=== PATIENT | female | born 1995 | race Hispanic/Latino ===

== ENCOUNTER 2020-11-14 14:10 | Inpatient (IN) | payer OTHER ==
[~2020-11-14] VITALS: Ht 162.6 cm; Wt 71.2 kg
[2020-11-14 15:25] LABS: BASOPHILS % (AUTO) 0.5 % (0.0-5.0); EOSINOPHILS % (AUTO) 0.2 % (0.0-8.0); HEMATOCRIT 26.3 % (36-48); LYMPHOCYTES % (AUTO) 9.4 % (21.0-51.0); MEAN CORPUSCULAR HEMOGLOBIN 22.7 pg (27.0-33.0); MEAN CORPUSCULAR HGB CONC 30.8 g/dL (32.0-36.0); MEAN CORPUSCULAR VOLUME 73.7 fL (79-99); MONOCYTES % (AUTO) 3.6 % (3.0-13.0); PLATELET COUNT (AUTO) 275 K/uL (130-400); RED BLOOD CELL COUNT(AUTO) 3.57 MIL/uL (4.00-5.50); RED CELL DISTRIBUTION WIDTH 16.1 % (11.0-15.5); WHITE BLOOD COUNT (AUTO) 13.3 K/uL (4.8-10.8)
[2020-11-14 16:00] LABS: CREATININE 0.5 mg/dL (0.5-1.5); POTASSIUM 3.9 mmol/L (3.5-5.1)
[2020-11-14 16:05] LABS: ALBUMIN 3.8 g/dL (3.5-5.0); BILIRUBIN,TOTAL 0.2 mg/dL (0.2-1.0); TOTAL PROTEIN, SERUM 7.4 g/dL (6.0-8.3)
[2020-11-14 18:37] LABS: BASOPHILS % (AUTO) 0.3 % (0.0-5.0); EOSINOPHILS % (AUTO) 0.1 % (0.0-8.0); HEMATOCRIT 23.1 % (36-48); LYMPHOCYTES % (AUTO) 11.6 % (21.0-51.0); MEAN CORPUSCULAR HGB CONC 31.2 g/dL (32.0-36.0); MEAN CORPUSCULAR VOLUME 73.8 fL (79-99); MONOCYTES % (AUTO) 3.4 % (3.0-13.0); NEUTROPHILS % (AUTO) 84.3 % (40.0-77.0); PLATELET COUNT (AUTO) 242 K/uL (130-400); RED BLOOD CELL COUNT(AUTO) 3.13 MIL/uL (4.00-5.50); RED CELL DISTRIBUTION WIDTH 16.2 % (11.0-15.5); WHITE BLOOD COUNT (AUTO) 10.9 K/uL (4.8-10.8)
[2020-11-14 21:28] VITALS: BP 126/68
[2020-11-14 22:10] VITALS: BP 114/73
[2020-11-14 22:17] VITALS: BP 115/72
[2020-11-14 22:27] VITALS: BP 112/82
[2020-11-14] MEDS ORDERED: [UNRECOGNIZED DRUG - OTHER] PO (22:43)
[2020-11-14] MEDS ORDERED: salbutamol IH (22:45)
[2020-11-14 23:30] VITALS: BP 106/61
[2020-11-15 00:46] VITALS: BP 112/65
[2020-11-15] MEDS: LACTATED RINGERS 1000ML 1,000 ML IV SCH ×2 (00:50→10:15)
[2020-11-15 04:26] VITALS: BP 112/61
[2020-11-15] MEDS ORDERED: LIDOCAINE PF 2% 5ML ABBOJECT ONE (05:33)
[2020-11-15] MEDS ORDERED: SUCCINYLCHOLINE CHLORIDE 20 MG/ML 10 ML VIAL ONE (05:33)
[2020-11-15] MEDS ORDERED: MIDAZOLAM HCL 1 MG/ML 2ML VIAL ONE (05:34)
[2020-11-15] MEDS ORDERED: ROCURONIUM 10MG/1ML SYR 10 MG/ML ML ONE (05:34)
[2020-11-15] MEDS ORDERED: FENTANYL CITRATE PF 50 MCG/1 ML 2ML VIAL ONE (05:34)
[2020-11-15] MEDS ORDERED: PROPOFOL 10 MG/ML 20ML VIAL IV ONE (05:34)
[2020-11-15] MEDS ORDERED: ONDANSETRON HCL 4 MG/2 ML VIAL ONE (05:37)
[2020-11-15] MEDS ORDERED: OXYTOCIN 10 USP UNITS/ML ONE (06:03)
[2020-11-15] MEDS ORDERED: CLINDAMYCIN 900 MG/D5% WATER 50 ML IV ONE (06:05)
[2020-11-15] MEDS ORDERED: CALDOLOR 800MG+NS 250ML 250 ML IV ONE (06:29)
[2020-11-15] MEDS ORDERED: CLINDAMYCIN 900 MG/D5% WATER 50 ML IV SCH (07:35)
[2020-11-15] MEDS ORDERED: CALDOLOR 800MG+NS 250ML 250 ML IV SCH (07:36)
[2020-11-15 09:00] VITALS: BP 100/61
[2020-11-15 12:00] VITALS: BP 112/68
[2020-11-15 12:02] LABS: BASOPHILS % (AUTO) 0.5 % (0.0-5.0); EOSINOPHILS % (AUTO) 0.2 % (0.0-8.0); HEMATOCRIT 23.6 % (36-48); LYMPHOCYTES % (AUTO) 31.3 % (21.0-51.0); MEAN CORPUSCULAR HGB CONC 30.9 g/dL (32.0-36.0); MEAN CORPUSCULAR VOLUME 74.4 fL (79-99); MONOCYTES % (AUTO) 4.8 % (3.0-13.0); NEUTROPHILS % (AUTO) 62.8 % (40.0-77.0); PLATELET COUNT (AUTO) 203 K/uL (130-400); RED BLOOD CELL COUNT(AUTO) 3.17 MIL/uL (4.00-5.50); RED CELL DISTRIBUTION WIDTH 15.6 % (11.0-15.5); WHITE BLOOD COUNT (AUTO) 5.6 K/uL (4.8-10.8)
== END 2020-11-15 13:30 | disposition home or self-care (01) | DRG 770 ==
LOC: EDH 14:10 → EDHIP 14:11 → WSH 21:00
PROVIDERS: ADMIT Obstetrics & Gynecology; ATTEND Obstetrics & Gynecology
PROC: 10D17ZZ Extraction of Products of Conception, Retained, Via Natural or Artificial Opening (ICD-10-PCS; principal; 2020-11-14)
PROC: 30233N1 Transfusion of Nonautologous Red Blood Cells into Peripheral Vein, Percutaneous Approach (ICD-10-PCS; 2020-11-14)
DX: O03.4 Incomplete spontaneous abortion without complication (principal); Z88.0 Allergy status to penicillin
CPT/HCPCS: 36415; 36430; 76801; 76817; 80053; 81025; 84702; 85025; 86850; 86900; 86901; 86923; G0378; J0330; J1741; J2001; J2250; J2405; J2590; J2704; J3010; J3490; J7120; P9016